=== PATIENT | male | born 1980 ===

== ENCOUNTER 2017-04-04 23:11 | Emergency (ER) | payer SELFPAY ==
--- NOTE | 2017-04-04 23:19 | EDPHY ---
H & P Time Seen by Provider: 04/04/17 23:13 HPI/ROS: HPI The patient presents brought in by paramedics from concert for intoxication and vomiting. Apparently the patient used mushrooms, alcohol, marijuana. He has vomited several times though denies any abdominal pain. He feels intoxicated. He denies any chest pain or dizziness.. REVIEW OF SYSTEMS Constitutional: No fever, no chills. Eyes: No discharge. ENT: No sore throat. Cardiovascular: No chest pain, no palpitations. Respiratory: No cough, no shortness of breath. Gastrointestinal: No abdominal pain, positive for vomiting. Genitourinary: No hematuria. Musculoskeletal: No back pain. Skin: No rashes. Neurological: No headache. PMHx: Healthy Soc Hx: Drug use PHYSICAL General Appearance: Alert, obviously intoxicated Eyes: Pupils equal and round no pallor or injection ENT, Mouth: Mucous membranes moist Respiratory: There are no retractions, lungs are clear to auscultation Cardiovascular: Regular rate and rhythm Gastrointestinal: Abdomen is soft and non-tender, no masses, bowel sounds normal Neurological: A&O, moves all extremities Skin: Warm and dry, no rashes Musculoskeletal: Neck is supple non tender Extremities: symmetrical, full range of motion Psychiatric: Patient is oriented X 3, there is no agitation Source: Patient, EMS Exam Limitations: Intoxication Constitutional: Initial Vital Signs Temperature (C) 35.0 C L 04/04/17 23:18 Heart Rate 88 04/04/17 23:18 Respiratory Rate 12 04/04/17 23:18 Blood Pressure 95/67 L 04/04/17 23:18 O2 Sat (%) 92 04/04/17 23:18 O2 Delivery Mode Room Air Allergies/Adverse Reactions: Unable to Assess Allergy (Unverified 04/04/17 23:18) Home Medications: Medication Instructions Recorded NK [No Known Home Meds] 04/04/17 Medical Decision Making Differential Diagnosis: This is a 36-year-old male with no significant past medical history who presents brought in by ambulance for drug intoxication. Apparently, he was using mushrooms, alcohol, marijuana had a concert tonight and vomited several times. Here, his abdominal exam is benign. Differential diagnosis includes alcohol intoxication, mushroom intoxication, less likely gastroenteritis, doubt serious abdominal pathology given no tenderness. The patient continued to become more clinically sober during his time in the emergency room. His came to pick him up and took him home in good condition. Departure - Departure Disposition: Home, Routine, Self-Care Clinical Impression: Drug use Alcoholic intoxication Qualifiers: Complication of substance-induced condition: with delirium Qualified Code(s): F10.921 - Alcohol use, unspecified with intoxication delirium Vomiting Qualifiers: Vomiting type: unspecified Vomiting Intractability: non-intractable Nausea presence: with nausea Qualified Code(s): R11.2 - Nausea with vomiting, unspecified Condition: Good Instructions: Abuse of Alcohol (ED), Polysubstance Abuse (ED) Additional Instructions: Please return to the emergency room if your worse in any way. Referrals: Patient,NotPresent [Primary Care Provider] - As per Instructions
[2017-04-05 00:24] VITALS: BP 129/84; PULSE 89; RESP 16; TEMP 97.5; O2SAT 97
== END 2017-04-05 00:40 | disposition home or self-care (01) ==
DX: F10.921 Alcohol use, unspecified with intoxication delirium (principal); R11.2 Nausea with vomiting, unspecified; F19.90 Other psychoactive substance use, unspecified, uncomplicated